=== PATIENT | male | born 1985 | race American Indian/Alaskan Native ===

== ENCOUNTER 2020-12-11 22:49 | Emergency (ER) | payer MEDICAID ==
[~2020-12-11] VITALS: Ht 190.5 cm; Wt 86.6 kg
[2020-12-11 23:12] VITALS: Ht 190.5 cm; Wt 86.6 kg
[2020-12-12 00:15] VITALS: BP 117/77
== END 2020-12-12 00:15 | disposition home or self-care (01) ==
LOC: ED 22:49
DX: S01.01XD Laceration without foreign body of scalp, subsequent encounter (principal); X58.XXXD Exposure to other specified factors, subsequent encounter